=== PATIENT | female | born 1925 | race Caucasian/White ===

== ENCOUNTER 2016-11-21 18:03 | Emergency (ER) | payer MEDICARE ==
[~2016-11-21] VITALS: Ht 162.6 cm; Wt 60.8 kg
--- NOTE | 2016-11-21 18:20 | NUR ---
RECEIVED REPORT ATTHIS TIME. HERE FOR "WITNESSED SYNCOPAL EPISODE WHILE AT HOME" PER REPORT. DENIES ANY SX'S AT THSI TIME. NO DIAPHROETIC. RESP EVEN AND UNLABORED. ON MONITOR AND OXYGEN. FAMILY AT BEDSIDE. CARE PLAN DISCUSSED.
--- NOTE | 2016-11-21 18:40 | NUR ---
TAKEN TO CT VIA [facility]
[2016-11-21 18:46] LABS: BASOPHILS # (AUTO) 0.1 /CMM (0.0-0.2); BASOPHILS % (AUTO) 0.9 % (0.0-2.0); CALCIUM, SERUM 9.2 mg/dL (8.5-10.1); CARBON DIOXIDE 23 mmol/L (21-32); CHLORIDE 104 mmol/L (98-107); CREATININE 1.1 mg/dL (0.6-1.3); GLUCOSE 140 mg/dL (74-106); HEMATOCRIT 41 % (33-45); HEMOGLOBIN 13.4 g/dL (11.5-14.8); LYMPHOCYTES # (AUTO) 2.2 /CMM (0.8-4.8); LYMPHOCYTES % (AUTO) 16.4 % (20.0-44.0); MEAN CORPUSCULAR HEMOGLOBIN 27 PG (26.0-33.0); MEAN CORPUSCULAR HGB CONC 33 g/dl (31.0-36.0); MEAN CORPUSCULAR VOLUME 83 fL (82-100); MONOCYTES # (AUTO) 0.9 /CMM (0.1-1.30); MONOCYTES % (AUTO) 6.5 % (2.0-12.0); NEUTROPHILS # (AUTO) 10.2 /CMM (1.8-8.9); NEUTROPHILS % (AUTO) 76.2 % (43.0-81.0); PLATELET COUNT (AUTO) 303 /CMM (150-450); POTASSIUM 4.4 mmol/L (3.5-5.1); RDW COEFFICIENT OF VARIATION 15.2 (11.5-15.0); RED BLOOD CELL COUNT(AUTO) 4.93 MIL/uL (4.0-5.2); SODIUM SERUM 138 mmol/L (136-145); UREA NITROGEN, BLOOD 17 mg/dL (7-18); WHITE BLOOD COUNT (AUTO) 13.4 K/uL (4.3-11.0)
[2016-11-21 18:50] LABS: INR 1.06 (0.87-1.13)
[2016-11-21 19:02] LABS: TROPONIN I < 0.017 ng/mL (0.00-0.056)
--- NOTE | 2016-11-21 19:03 | NUR ---
FLUIDS STILL INFUSING WITH NO S/S OF DISTRESS. RESP EVEN AND UNLABORED.
[2016-11-21 19:34] VITALS: BP 126/68
--- NOTE | 2016-11-21 19:34 | NUR ---
Patient discharged to home in stable condition. Written and verbal after care instructions given. Patient verbalizes understanding of instruction.IV removed. Catheter intact and site benign. Pressure and 4x4 applied to site. No bleeding noted. PT ambulatory with a steady gait
== END 2016-11-21 20:02 | disposition home or self-care (01) ==
LOC: ER 18:05
DX: R42 Dizziness and giddiness (principal); I10 Essential (primary) hypertension; Z85.038 Personal history of other malignant neoplasm of large intestine; Z86.718 Personal history of other venous thrombosis and embolism; Z88.0 Allergy status to penicillin
CPT/HCPCS: 36415; 70450-TC; 71010-TC; 80048-TC; 84484-TC; 85025-TC; 85730-TC; A4606; J7030; Z7610